=== PATIENT | male | born 2000 | race Caucasian/White ===

== ENCOUNTER 2018-04-15 15:01 | Emergency (ER) | payer OTHER ==
[2018-04-15] MEDS ORDERED: fentaNYL 100 MCG/2 ML INJ ONE (15:14)
[2018-04-15] MEDS ORDERED: fentaNYL 100 MCG/2 ML INJ IVP ONE ×2 (15:17→15:29)
[2018-04-15] MEDS ORDERED: PROPOFOL 200 MG/20 ML VIAL ONE (15:20)
[2018-04-15] MEDS ORDERED: PROPOFOL 200 MG/20 ML VIAL IVP ONE (15:29)
--- NOTE | 2018-04-15 15:39 | EDPHY ---
H & P Time Seen by Provider: 04/15/18 15:19 HPI/ROS: CHIEF COMPLAINT: Shoulder injury HISTORY OF PRESENT ILLNESS: 18-year-old male, [place]-speaking primarily, presents the emergency department following a right shoulder injury. Patient is in moderate distress secondary to pain. He reports that he was pulling cables across the [employer] field when he slipped in the mud and fell on outstretched arm. This is the 1st time he has had a shoulder dislocation. He denies any other injuries, specifically denying any head pain, loss of consciousness, chest pain, shortness of breath, abdominal pain, left upper extremity pain or lower extremity pain History and focused review of systems obtained from the oven laborer via [facility]. REVIEW OF SYSTEMS: A comprehensive 10 system review of systems was reviewed and is otherwise negative aside from elements mentioned in the history of present illness. PAST MEDICAL HISTORY: Patient denies. SOCIAL HISTORY: Nonsmoker. VITAL SIGNS: see nurse's notes. GENERAL: Well-developed, well-nourished, in moderate discomfort secondary to shoulder pain. Patient is sitting hunched over with his right upper extremity held slightly abducted. Significant pain with any movement. HEENT: Atraumatic. Normal, no discharge or icterus, moist mucous membranes. Neck: Nontender to palpation. supple, FROM. LUNGS: Clear to auscultation bilaterally, no wheezes, rhonchi or rales. Nontender to palpation on the chest wall. CARDIAC: Regular rate and rhythm, no rubs, murmurs or gallops. ABDOMEN: Soft, nontender, nondistended, bowel sounds normal. BACK: No CVA tenderness. No vertebral tenderness. EXTREMITIES: Right shoulder: Obvious shoulder this location with flattening of the normal humeral head. Sensation intact over the deltoid. Distal sensation intact. Pulses 2+ and equal radius and ulnar. Brisk capillary refill. NEURO: Alert and oriented, grossly nonfocal. SKIN: Warm and dry, no rash. Smoking Status: Unknown if ever smoked Constitutional: Initial Vital Signs Temperature (C) 36.5 C 04/15/18 15:26 Heart Rate 63 04/15/18 15:26 Respiratory Rate 16 04/15/18 15:26 Blood Pressure 117/80 04/15/18 15:26 O2 Sat (%) 97 04/15/18 15:26 O2 Delivery Mode Room Air O2 (L/minute) 1 Allergies/Adverse Reactions: No Known Allergies Allergy (Unverified 04/15/18 15:17) Home Medications: Medication Instructions Recorded oxyCODONE/APAP [Percocet 1 tab PO QID PRN #14 tab 04/15/18 5325 (*)] Medical Decision Making - Diagnostics Imaging Results: Imaging Impressions Shoulder X-Ray 04/15/18 15:11 Impression: Right glenohumeral shoulder dislocation. Shoulder X-Ray 04/15/18 15:18 Impression: Anatomic realignment of the right glenohumeral joint following closed reduction. ED Course/Re-evaluation: 18-year-old male presenting after slip and fall onto an outstretched right arm with a right shoulder dislocation. X-ray demonstrates a dislocation with no fracture. Procedure: Dislocation reduction. Indication: Dislocation of the right shoulder joint joint. Risks, benefits, alternatives discussed with the patient and consent obtained. The shoulder was reduced in the usual fashion without complications. Post reduction the patient's neurovascular exam is normal. Post reduction x-ray demonstrates reduction of the joint to the anatomic position. The procedure was performed by myself. Procedure: Conscious sedation. Indication: Right shoulder dislocation The patient is an appropriate candidate to tolerate procedural sedation. Patient's vital signs and mental status are appropriate. The risks, benefits, and alternatives of the sedation were discussed with the patient. The patient is an ASA classification of 1. The patient's Mallampati airway score was 2 and the patient did meet the 3-3-2 airway measurements. A time out was completed. The patient was sedated with propofol 80 mg. The patient was monitored with continuous pulse oximetry, smoking pipe coater and end tidal CO2. There were no complications and no significant hypoxemia. I performed both the sedation and the procedure. The total time I spent at the bedside during the procedural sedation was 15 minutes. The patient was examined after the procedural sedation and has returned to their pre-sedation baseline with normal vital signs and a normal examination. Patient placed in a sling following the reduction. Aftercare instructions were discussed with the patient via the licensed mental health professional. Differential Diagnosis: Differential diagnosis for the patient's injury was considered including but not limited to contusion, abrasion, laceration, fracture, open fracture, or dislocation. - Data Points Medications Given: Discontinued Medications Fentanyl (Sublimaze) 50 mcg IVP EDNOW ONE Stop: 04/15/18 15:18 Last Admin: 04/15/18 15:23 Dose: 50 mcg Fentanyl (Sublimaze) 25 mcg IVP EDNOW ONE Stop: 04/15/18 15:30 Last Admin: 04/15/18 15:31 Dose: 100 mcg Ketorolac Tromethamine (Toradol) 30 mg IVP EDNOW ONE Stop: 04/15/18 15:44 Last Admin: 04/15/18 15:45 Dose: 30 mg Oxycodone/Acetaminophen (Percocet 5/325) 1 tab PO EDNOW ONE Stop: 04/15/18 15:44 Last Admin: 04/15/18 15:45 Dose: 1 tab Propofol (Diprivan) 80 mg IVP EDNOW ONE Stop: 04/15/18 15:30 Last Admin: 04/15/18 15:31 Dose: 80 mg Departure - Departure Disposition: Home, Routine, Self-Care Clinical Impression: Dislocation of right shoulder joint Qualifiers: Encounter type: initial encounter Qualified Code(s): S43.004A - Unspecified dislocation of right shoulder joint, initial encounter Condition: Good Instructions: Shoulder Dislocation (ED), Closed Reduction (ED) Additional Instructions: 1. You need to wear the sling at all times until you are seen by the orthopedic surgeon. 2. Avoid lifting your arm above your head as this may cause of the shoulder to dislocate again. 3. Most important things to do is to rest the shoulder, ice it frequently, keep it in the sling, and take nonsteroidal anti-inflammatories for pain and to decrease the swelling. Apply ice for 20-30 minutes every 2-3 hours for the next 48 hours. I recommend Ibuprofen (Motrin, Advil) or Naproxen Sodium (Aleve) for pain and anti-inflammatory effects. You may take either one, but do not take both. Your dose is: Ibuprofen 600 mg every 6-8 hours with food. OR Naproxen Sodium (Aleve) 220 mg every 12 hours. 4. Okay to use oxycodone if needed for severe pain. 5. Followup with the orthopedic surgeon as directed. 6. You may need to follow up with your workmen's compensation before being seen by orthopedic surgeon. Off work until you are seen by workman's compensation. Referrals: NONE *PRIMARY CARE P,. [Primary Care Provider] - As per Instructions Yahir Moe MD [Medical Doctor] - As per Instructions Stand Alone Forms: Work Comp Follow Up, Work Excuse Prescriptions: oxyCODONE/APAP 5/325 [Percocet 5/325 (*)] 1 tab PO QID PRN #14 tab PRN Reason: Pain
[2018-04-15] MEDS ORDERED: OXYCODONE/APAP 5/325 TAB PO ONE (15:43)
[2018-04-15] MEDS ORDERED: KETOROLAC 30 MG/1 ML SDV IVP ONE (15:43)
[2018-04-15 16:44] VITALS: BP 113/74
== END 2018-04-15 17:25 | disposition home or self-care (01) ==
LOC: CED 15:01
PROC: 0RSJXZZ Reposition Right Shoulder Joint, External Approach (ICD-10-PCS; principal; 2018-04-15)
DX: S43.004A Unspecified dislocation of right shoulder joint, initial encounter (principal); W01.198A Fall on same level from slipping, tripping and stumbling with subsequent striking against other object, initial encounter; Y93.H3 Activity, building and construction; Y99.0 Civilian activity done for income or pay
CPT/HCPCS: 73030-PO; 96374-ER; 96375-ER; 99152-ER; A4565-ER; J1885; J2704; J3010